=== PATIENT | female | born 1985 | race Caucasian/White ===

== ENCOUNTER 2018-08-24 07:52 | Outpatient (CLI) | payer BC ==
--- NOTE | 2018-08-24 10:12 | CT ---
CT NECK WITH CONTRAST: History: 33-year-old female with left throat pain (chronic). Suspected/rule out: Eagles syndrome versus mas s. R07.0 - pain in throat K21.9 - esophageal reflux NOS FINDINGS: The styloid processes are approximately 2 cm in length each, normal. The stylohyoid ligaments are not calcified or ossified. There is soft tissue thickening at the posterior aspect of the left hypopharynx, causing partial effa cement of the left pyriform sinus, and thickening of the left posterior aspect of the left aryepiglot tic fold. No other abnormality of the pharyngeal mucosal space. The submandibular, parotid, carotid, periverteb ral, parapharyngeal, rf engineer, retropharyngeal, and posterior cervical spaces, are normal. Thyroid gland is normal. Trachea is patent and clear. Lung apices are clear. No cervical lymphadenopathy. No destructive osseous lesion. IMPRESSION: 1. No evidence of Hamlin syndrome. 2. Asymmetry at the left hypopharynx. Recommend direct visualization. POS: [facility]
[2018-08-24] MEDS ORDERED: Iopamidol 370 76% 100 ML VIAL ONE (10:57)
== END 2018-08-24 07:53 | disposition home or self-care (01) ==
LOC: CT 07:52
PROVIDERS: ATTEND Otolaryngology Otolaryngic Allergy
DX: K21.9 Gastro-esophageal reflux disease without esophagitis (principal); R07.0 Pain in throat; J39.2 Other diseases of pharynx
CPT/HCPCS: 70491; Q9967